=== PATIENT | female | born 1980 | race Caucasian/White ===

== ENCOUNTER → 2017-12-01 13:49 | Outpatient (CLI) | payer OTHER, MEDICAID, SELFPAY ==
--- NOTE | 2017-12-01 13:49 | DI.CT.S_ITS ---
PROCEDURE: CT SOFT TISSUE NECK W CON INDICATIONS: swollen lymph nodes TECHNIQUE: After the administration of intravenous contrast, 3.0 mm axial sections acquired from the sella to the aortic arch. Additional oblique axial 3.0 mm sections acquired through the pharynx. 3 mm thick coronal and sagittal reformats were generated. For radiation dose reduction, the following was used: automated exposure control. COMPARISON: None. FINDINGS: Image quality: Excellent. Lymph nodes: Mildly enlarged bilateral cervical lymph nodes are seen, with the largest seen in the left at level IIA measuring 12 x 20 mm in greatest axial dimension. Additional mildly enlarged lymph nodes are seen elsewhere within the neck, left more prominent than right. Neck spaces: The oropharynx, nasopharynx, and pharynx demonstrate no mucosal lesions. The vocal cords, false vocal cords, pyriform sinuses, epiglottis, vallecula, and tongue base all appear normal. Extramucosal spaces appear unremarkable. Glands: The parotid and submandibular glands appear normal. Thyroid gland demonstrates a hypoenhancing ovoid mass involving the isthmus and medial right thyroid that measures up to 2 cm. Miscellaneous: Visualized brain and orbits appear normal. Lung apices appear clear. Superficial soft tissues appear normal. Bones: No suspicious bony lesions. Visualized sinuses and mastoids appear unremarkable. IMPRESSION: Mildly enlarged cervical lymph nodes are seen, left greater than right. In the absence of a known or suspected primary cancer or lymphoma, these are felt most likely to be reactive in nature. If these do not improved clinically, then please consider a followup versus biopsy in 6 weeks. Incidental note is made of a right medial thyroid/isthmus hypoenhancing mass that measures up to 2 cm. A followup thyroid ultrasound is recommended for further evaluation. Dictated by: Daniel Turner M.D. on 12/01/2017 at 13:49 Approved by: Daniel Turner M.D. on 12/01/2017 at 13:53
== END ==
PROVIDERS: Family Provider Family Medicine; Visit Provider Family Medicine
DX: R59.0 Localized enlarged lymph nodes (principal); E07.9 Disorder of thyroid, unspecified
CPT/HCPCS: 70491

== ENCOUNTER → 2017-12-12 12:16 | Outpatient (CLI) | payer OTHER, MEDICAID, SELFPAY ==
[2017-12-12 14:07] LABS: Thyroid Stimulating Hormone 1.76 uIU/mL (0.47-4.68)
== END ==
PROVIDERS: Family Provider Family Medicine; PCP Family Medicine; Visit Provider Otolaryngology
DX: E04.1 Nontoxic single thyroid nodule (principal)
CPT/HCPCS: 36415; 84443

== ENCOUNTER → 2018-01-01 13:10 | Outpatient (CLI) | payer OTHER, MEDICAID, SELFPAY ==
--- NOTE | 2018-01-01 | DI.US.S_ITS ---
PROCEDURE: US THYROID INDICATIONS: THYROID NODULE TECHNIQUE: Real-time scanning was performed of the thyroid gland, with image documentation. COMPARISON: [facility], CT, CT SOFT TISSUE NECK W CON, 12/01/2017, 13:57. FINDINGS: Right: The right thyroid lobe measures 1.6 x 1.7 x 4.6 cm. At the right superior thyroid junction with the isthmus there is a solid appearing mass seen by next CT scanning 12/01/17, measuring up to 1.3 x 1.7 x 2.3 cm which is solid, hypoechoic, smoothly marginated. Left: The left thyroid lobe measures 1.3 x 1.4 x 4.9 cm. Note is made of multiple moderately prominent lymph nodes within the left neck, the largest of which measures 1.1 cm. There is a left inferior 1.1 x 0.7 x 0.7 cm solid hypoechoic smoothly marginated nodule involving the left thyroid lobe inferior third. Isthmus: The junction of the isthmus and the right thyroid lobe contains the dominant right thyroid mass discussed above. IMPRESSION: The dominant right thyroid mass appears amenable to safe ultrasound-guided cytology aspiration. Note is made of scattered moderately prominent lymph nodes at the left neck, as was noted during CT scanning 12/01/17. Dictated by: John Dominguez M.D. on 01/01/2018 at 13:55 Approved by: John Dominguez M.D. on 01/01/2018 at 13:59
== END ==
PROVIDERS: Family Provider Family Medicine; PCP Family Medicine; Visit Provider Otolaryngology
DX: E07.9 Disorder of thyroid, unspecified (principal); E04.1 Nontoxic single thyroid nodule; R59.0 Localized enlarged lymph nodes
CPT/HCPCS: 76536

== ENCOUNTER → 2018-01-18 10:14 | Outpatient (CLI) | payer OTHER, MEDICAID, SELFPAY ==
--- NOTE | 2018-01-18 | PATH_ITS ---
Note [facility] Accession Number: [id number] TESTS RESULT FLAG UNITS REF RANGE LAB Clinician Provided Cytology Information No. of containers..01 ThinPrep Vial No. of containers..12 Previously Prepared Cytology Slide 01 L NECK LYMPH NODE DIAGNOSIS: 02 L NECK LYMPH NODE NEGATIVE FOR CYTOLOGICALLY MALIGNANT CELLS. POLYMORPHOUS LYMPHOCYTES PRESENT, FAVOR A REACTIVE PROCESS. NO METASTATIC TUMOR IDENTIFIED. Pathologist ICD10: 02 R59.9 02 Taylor Solorio MD, Pathologist NPI- [id number] Uriel Rosales, Can Top Setter ([facility]) 01 30 CC, PINK, CLEAR RECEIVED: 6 ALCOHOL FIXED AND 6 QUICK STAINED SLIDES WITH 1 RNA VIAL FOR FURTHER TESTING. /VDU FLAG LEGEND: L-Low Normal,H-High Normal,LL-Alert Low,HH-Alert High <-Panic Low,>-Panic High,A-Abnormal,AA-Critical Abnormal Performed at: 01 =Z [facility] [address], [place] [address] Dionicio Danielle MD, 02 [facility] [address] [place] [id number] Evan Bennett MD, Performed at: 01 [facility] [address], [place], [place] [id number] MD Dionicio Danielle MD Phone: [phone]
--- NOTE | 2018-01-18 | DI.US.S_ITS ---
PROCEDURE: US BIOPSY LYMPH NODE INDICATIONS: ENLARGED LEFT NECK LYMPH NODE TECHNIQUE: The indications, alternatives, benefits, risks, and complications of the procedure were explained to the patient. Written informed consent was obtained and placed in the chart. Real-time sonography was utilized to choose the site for percutaneous lymph node sampling. The skin was prepped and draped in the usual sterile fashion. 1% lidocaine was infiltrated down to the site of interest. A coaxial needle was then advanced into the site of interest under direct sonographic visualization. A biopsy apparatus was then utilized, and core biopsies were obtained. The needle was then withdrawn; a bandage was applied to the biopsy site. COMPARISON: [facility], CT, CT SOFT TISSUE NECK W CON, 12/01/2017, 13:57. [facility], US, US THYROID, 01/01/2018, 13:23. FINDINGS: Biopsy site(s): Left superior cervical lymph node (palpable by patient) Needle: [employer] biopsy needle set. Number of passes: 7 Medications: 1% lidocaine for local anaesthesia. Complications: None. IMPRESSION: Successful ultrasound-guided left cervical lymph node biopsy, with pathology results pending. Dictated by: Chaz Macdonald M.D. on 01/18/2018 at 14:40 Approved by: Chaz Macdonald M.D. on 01/18/2018 at 14:43
--- NOTE | 2018-01-18 | DI.US.S_ITS ---
PROCEDURE: US FINE NEEDLE ASPIRATION INDICATIONS: NONTOXIC SINGLE THYROID NODULE TECHNIQUE: The indications, alternatives, benefits, risks, and complications of the procedure were explained to the patient. Written informed consent was obtained and placed in the chart. The thyroid region was examined sonographically and a site was chosen for ultrasound guided percutaneous sampling. The skin was prepared and draped in the usual fashion, and anesthetized with 1% lidocaine infiltrated from the skin down to the thyroid gland. Multiple passes were then performed, with contents emptied into an appropriate pathology specimen container. A bandage was applied to the area of access at completion of the study. COMPARISON: [facility], US, US THYROID, 01/01/2018, 13:23. FINDINGS: Location(s) of lesion(s) sampled: Right superior medial thyroid mass Bliss: 25 gauge hypodermic needles. Number of passes: 7 Medications: 1% lidocaine for local anaesthesia. Complications: None. IMPRESSION: Successful ultrasound-guided thyroid nodule fine needle aspiration, with cytology results pending. Please see chart below for management recommendations based on cytology results. [facility] ReportingRecommendationsNon-diagnostic* Repeat US-guided FNA, with on-site cytology evaluation if possible. * Repeated non-diagnostic nodules without high suspicion US features: close observation vs surgical consult. * Consider surgery if nodule has high suspicion US features, grows >20% in 2 dimensions on followup, or patient has clinical risk factors for malignancy. Benign* If nodule has high suspicion US features: repeat US and FNA within 12 months. * If nodule has low to intermediate suspicion US features: repeat US at 12-24 months. If nodule grows (20% increase in at least 2 dimensions, with minimal increase of 2 mm or >50% change in volume), or development of new suspicious US features, then repeat FNA or continue followup. * If nodule has very low suspicion US features: followup US at >24 months. Atypia of undetermined significance, follicular lesion of undetermined significanceRepeat FNA, molecular testing, followup US, or surgical consult.Follicular neoplasm, suspicious for follicular neoplasmSurgical consult; also consider molecular testing. Suspicious for malignancySurgical consult.MalignantSurgical consult. Dictated by: Chaz Macdonald M.D. on 01/18/2018 at 14:38 Approved by: Chaz Macdonald M.D. on 01/18/2018 at 14:39
--- NOTE | 2018-01-18 | PATH_ITS ---
Note [facility] Accession Number: [id number] TESTS RESULT FLAG UNITS REF RANGE LAB Clinician Provided Cytology Information No. of containers..01 ThinPrep Vial No. of containers..10 Previously Prepared Cytology Slide 01 RIGHT THYROID ISTHMU DIAGNOSIS: 02 RIGHT THYROID ISTHMUS BETH[place]DA CATEGORY III. ATYPIA OF UNDETERMINED SIGNIFICANCE. COMMENT Scattered cohesive groups of follicular cells, predominantly benign appearing, are present with focal architectural and cytologic atypia. There is relatively abundant background of blood and obscuring clotting artifact. A portion of the specimen will be sent for molecular testing to assist in predicting the risk of maligancy in this atypical specimen. A repeat aspirate after an appropriate interval of observation might be helpful, if clinically indicated. As part of routine quality assurance supervisor final, Dr. Solorio also reviewed selected slides and agrees with the above interpretation. Pathologist ICD10: 02 R89.6 02 Jessica Cope MD, Pathologist NPI- [id number] Silvestre Dupree, Primary Care Coordinator ([facility]) 01 30 CC, RED, CLEAR RECEIVED: 5 ALCOHOL FIXED AND 5 QUICK STAINED SLIDES WITH 1 RNA VIAL FOR FURTHER TESTING. /VDU FLAG LEGEND: L-Low Normal,H-High Normal,LL-Alert Low,HH-Alert High <-Panic Low,>-Panic High,A-Abnormal,AA-Critical Abnormal Performed at: 01 =Z [facility] [address] [place] [address] [address], [place] [address] Dionicio Danielle MD, 02 [facility] [address] [place] [address] Evan Bennett MD, Performed at: 01 [facility] [address] [place] [address], [place], [place] [id number] MD Dionicio Danielle MD Phone: [phone]
== END ==
PROVIDERS: Family Provider Family Medicine; PCP Family Medicine; Visit Provider Otolaryngology
DX: E04.1 Nontoxic single thyroid nodule (principal); R59.0 Localized enlarged lymph nodes
CPT/HCPCS: 10022; 38505; 76942

== ENCOUNTER → 2020-10-19 15:07 | Outpatient (ROUT) | payer OTHER, MEDICAID, SELFPAY ==
[2020-10-19 15:54] LABS: COVID19 -Nasal RAPID Negative (Negative)
== END ==
PROVIDERS: Family Provider Family Medicine; PCP Family Medicine; Visit Provider Physician Assistant
DX: Z20.822 Contact with and (suspected) exposure to COVID-19 (principal)
CPT/HCPCS: 87635

== ENCOUNTER 2020-11-22 10:07 | Emergency (ER) | payer OTHER, MEDICAID, SELFPAY ==
[2020-11-22 10:19] VITALS: BP 131/66; PULSE 75; RESP 20; TEMP 35.8; O2SAT 99
[2020-11-22] MEDS: KETOROLAC 30 MG/ML VIAL IM (11:48)
--- NOTE | 2020-11-22 11:50 | ED.BACK ---
HPI - Back Pain/Injury General Chief Complaint: Back Pain/Injury Stated Complaint: Fell and back made a crack sound Time Seen by Provider: 11/22/20 11:42 Source: patient Limitations: no limitations History of Present Illness HPI Narrative: Patient is a 40-year-old female who presents with back pain after falling backwards. [place], pigs were coming out at her took a few steps back fell backwards now having some back pain and right lumbar pain. She denies any numbness tingling or weakness of her right leg. Some movements hurt she feels like she heard a crack. No head injury or loss of consciousness. She is otherwise healthy. Related Data Previous Rx's Medication Instructions Recorded cyclobenzaprine 5 mg tablet 5 mg PO TID PRN #10 tab 11/22/20 hydrocodone 5 mg-acetaminophen 325 1 tab PO Q6H PRN #20 tab 11/22/20 mg tablet Allergies Allergy/AdvReac Type Severity Reaction Status Date / Time No Known Allergies Allergy Unknown Verified 10/19/20 14:56 [NO KNOWN ALLERGIES] Review of Systems Review of Systems Narrative: GENERAL: Denies chills, fatigue, malaise, fever, sweats, travel HEENT: Denies sinus pain, ear pain, sore throat, difficulty swallowing, neck pain RESPIRATORY: Denies dyspnea, cough, wheezing, hemoptysis, sputum. CARDIOVASCULAR: Denies chest pain, palpitations, orthopnea, edema GASTROINTESTINAL: Denies nausea, vomiting, abdominal pain, diarrhea, constipation, melena. : Denies dysuria, frequency, incontinence, hematuria, urinary retention, flank pain. MUSCULOSKELETAL: Back pain SKIN: No rash, no erythema, no pruritus NEUROLOGIC: Denies weakness, dizziness, headache, numbness, change in speech, confusion PSYCHIATRIC: No concerning psychosocial issues. 12 point review of systems is negative except for those stated above and HPI Patient History Medical History Dermoid cyst of right ovary (2010) 4 para 4 HSV-1 (herpes simplex virus 1) infection Normal Papanicolaou smear Ovarian cyst (2015) RLS (restless legs syndrome) Scoliosis (1994) Surgical History (Updated 11/01/17 @ 16:13 by Silvia Ibarra) Anesthesia History of excision of dermoid cyst (2010) History of left salpingo-oophorectomy (12/25/15) Status post excision of lipoma (1999) Status post laparoscopy (12/25/15) Family History (Updated 11/01/17 @ 16:16 by Silvia Ibarra) Brother Age: 39 Non-Hodgkin lymphoma Cancer Father Diabetes mellitus Heart disease Hypertension High cholesterol Sleep apnea, unspecified type Grandfather Stroke Grandmother Heart disease Stroke Mother Age: 76 Diabetes mellitus High cholesterol Hypertension Grandfather Heavy smoker Sister Age: 49 Fibromyalgia Brother No problems noted. Grandmother COPD (chronic obstructive pulmonary disease) Social History Smoking Status: Never smoker Smoking Status: Never smoker Substance Use Type: does not use Exam Initial Vital Signs Initial Vital Signs: Vital Signs Temperature 96.4 F L 11/22/20 10:19 Pulse Rate 75 11/22/20 10:19 Respiratory Rate 20 11/22/20 10:19 Blood Pressure 131/66 11/22/20 10:19 Pulse Oximetry 99 11/22/20 10:19 GENERAL: Alert 40-year-old female CARDIOVASCULAR: peripheral pulses in tact, cap refill <2 sec RESPIRATORY: No respiratory distress, speaks in full sentences without difficulty BACK: Mild midline lumbar pain L4-L5 area no step-offs or contusions. Pain right lumbar area and paraspinal muscles. Sensation in lower extremities intact ago to move right leg a out severe pain EXTREMITIES: Normal range of motion, no clubbing or edema. Neurovascularly intact NEUROLOGICAL: Cranial nerves II through XII grossly intact. Normal gait and speech. SKIN: Warm, dry, no petechiae, no rashes or lesions. Course Orders Ordered: ED Orders 11/22/20 11:51 XR lumbar spine 2-3V Stat 11/22/20 12:30 CT lumbar spine wo con Stat Discontinued Medications Hydromorphone HCl (Hydromorphone 2 Mg Inj) 1 mg SUBCUT Q4H PRN PRN Reason: Pain, Severe (7-10) Last Admin: 11/22/20 13:09 Dose: 1 mg Documented by: JACQUELINE Ketorolac Tromethamine (Ketorolac 30 Mg/Ml Vial) 30 mg IM NOW ONE Stop: 11/22/20 11:43 Last Admin: 11/22/20 11:48 Dose: 30 mg Documented by: ALAN Vital Signs Vital signs: Vital Signs - 8 hr 11/22/20 15:00 Temperature 97.3 F L Pulse Rate 69 Respiratory Rate 18 Blood Pressure 140/71 Pulse Oximetry 97 MDM - Back Pain/Injury Imaging Data Extremity x-ray #1: Radiologist's Impression: PROCEDURE:? XR LUMBAR SPINE 2-3V ? INDICATIONS:? fall ? TECHNIQUE:? 3 views of the lumbar spine were acquired.? ? COMPARISON:? [facility], CT, ABDOMEN/PELVIS WITH CONTRAST, 10/13/2016, 21:25. ? FINDINGS:? ? Bones:? There is a compression deformity seen involving the anterior aspect of L2 vertebral body, with 20% loss height anteriorly.? No posterior displacement of fracture fragments can be seen.? This fracture is new compared to 2017. ? No additional fractures are detected. 5 nonrib-bearing, lumbar type vertebral bodies are seen.? No suspicious lytic or blastic lesions are seen.? The disc heights are well preserved. ? Soft tissues:? Overlying bowel gas pattern is normal.? No suspicious soft tissue calcifications.? ? ? IMPRESSION:? Acute appearing L2 fracture, with 20% loss of height anteriorly. ? If it would be helpful for clinical management decision making, please consider a dedicated lumbar spine CT or MRI for further evaluation (assuming that there is no contraindication).? ? ? Dictated by: Daniel Turner M.D. on 11/22/2020 at 11:21 ? ? CT Lumbar: Radiologist's Impression: PROCEDURE:? CT LUMBAR SPINE WO CON ? INDICATIONS:? fall L2 fracture ? TECHNIQUE:? Noncontrast 3 mm thick sections acquired from the T12 level to the sacrum.? Sagittal and coronal reformats were constructed.? For radiation dose reduction, the following was used:? automated exposure control.? ? COMPARISON:? [facility], CR, XR LUMBAR SPINE 2-3V, 11/22/2020, 11:47.? [facility], CT, ABDOMEN/PELVIS WITH CONTRAST, 10/13/2016, 21:25. ? FINDINGS:? Image quality:? Excellent.? ? Bones:? There is an acute L2 fracture seen, with 40-50% loss centrally.? There is involvement both superior endplate and the inferior endplate.? No posterior displacement of fracture fragments can be seen. No additional fractures are detected. ? No additional fractures are detected. There is normal bony alignment.? No suspicious lytic or blastic bony lesions.? No pars defects.? ? No significant disc pathology, central narrowing, or neural foraminal narrowing can be seen throughout. ? Soft tissues:? No retroperitoneal masses or hematomas.? Visualized aorta is normal in caliber.? ? ? IMPRESSION:? L2 fracture, which involves both the superior endplate and the inferior endplate.? There is 40-50% loss of height centrally.? No posterior displacement of fracture fragments can be seen. ? ? Dictated by: Daniel Turner M.D. on 11/22/2020 at 11:58 ?? MDM Narrative Medical decision making narrative: Patient is some have L2 fracture on x-ray. She is having as of her spinal muscle tenderness and palpable spasm as well. CT does confirm compression like fracture of L2 which is stable. She is given pain medications as well. At this time she has no new neurologic deficits I discussed with her warning signs when to return to ED. I encouraged her to follow-up with orthopedics. Discharge Plan Departure Patient Disposition: Home Clinical Impression: Closed L2 vertebral fracture Instructions: DI for Vertebral Fracture Activity Restrictions/Additional Instructions: *You have been diagnosed with L2 fracture *What to do: At this time he did break L2. However it should heal without any intervention. Nonetheless should follow-up with a spinal surgeon. No heavy lifting. Light activity only *Continue to take medications as directed [place] 1-2 tablets every 6 hours if needed for pain Cyclobenzaprine 5-10 mg every 8 hours *Follow up with your primary care provider in 2-[address] López on Monday for close follow-up *Return to ER if you should have numbness or tingling in extremities loss of urine or bowel, fever, increasing pain, or any new, worsening or concerning symptoms CONTROLLED SUBSTANCE DISCHARGE (Narcotoic/benzodiazepine/Flexeril/Phenergan) 1. You have been prescribed narcotic medications, it does have acetaminophen/Tylenol/paracetamol in it, DO NOT TAKE MORE THAN 4,00mg in 24 hours of Tylenol. TRAMADOL DOES NOT CONTAIN TYLENOL 2. Please understand that we cannot provide further refills of narcotics, benzodiazepines or controlled substances through the ED and her pain management will need to be through your provider. 3. While on these medications you cannot drive or operate heavy machinery. 4. You cannot sign legal documents or perform any duties such as this. 5. As long as you're taking opiate pain medications he should also be taking a stool softener such as Colace, Dulcolax, MiraLAX or prune juice, to help avoid constipation. Prescriptions: New hydrocodone-acetaminophen 5-325 mg tablet 1 tab PO Q6H PRN (Reason: pain) Qty: 20 RF: 0 cyclobenzaprine 5 mg tablet 5 mg PO TID PRN (Reason: muscle spasm) Qty: 10 RF: 0 Referrals: Linda Oropeza DO [Primary Care Provider] - Cecy Colon MD [Physician] -
--- NOTE | 2020-11-22 11:51 | DI.RAD.S_ITS ---
PROCEDURE: XR LUMBAR SPINE 2-3V INDICATIONS: fall TECHNIQUE: 3 views of the lumbar spine were acquired. COMPARISON: [facility], CT, ABDOMEN/PELVIS WITH CONTRAST, 10/13/2016, 21:25. FINDINGS: Bones: There is a compression deformity seen involving the anterior aspect of L2 vertebral body, with 20% loss height anteriorly. No posterior displacement of fracture fragments can be seen. This fracture is new compared to 2017. No additional fractures are detected. 5 nonrib-bearing, lumbar type vertebral bodies are seen. No suspicious lytic or blastic lesions are seen. The disc heights are well preserved. Soft tissues: Overlying bowel gas pattern is normal. No suspicious soft tissue calcifications. IMPRESSION: Acute appearing L2 fracture, with 20% loss of height anteriorly. If it would be helpful for clinical management decision making, please consider a dedicated lumbar spine CT or MRI for further evaluation (assuming that there is no contraindication). Dictated by: Daniel Turner M.D. on 11/22/2020 at 11:21 Approved by: Daniel Turner M.D. on 11/22/2020 at 11:23
--- NOTE | 2020-11-22 12:30 | DI.CT.S_ITS ---
PROCEDURE: CT LUMBAR SPINE WO CON INDICATIONS: fall L2 fracture TECHNIQUE: Noncontrast 3 mm thick sections acquired from the T12 level to the sacrum. Sagittal and coronal reformats were constructed. For radiation dose reduction, the following was used: automated exposure control. COMPARISON: [facility], CR, XR LUMBAR SPINE 2-3V, 11/22/2020, 11:47. [facility], CT, ABDOMEN/PELVIS WITH CONTRAST, 10/13/2016, 21:25. FINDINGS: Image quality: Excellent. Bones: There is an acute L2 fracture seen, with 40-50% loss centrally. There is involvement both superior endplate and the inferior endplate. No posterior displacement of fracture fragments can be seen. No additional fractures are detected. No additional fractures are detected. There is normal bony alignment. No suspicious lytic or blastic bony lesions. No pars defects. No significant disc pathology, central narrowing, or neural foraminal narrowing can be seen throughout. Soft tissues: No retroperitoneal masses or hematomas. Visualized aorta is normal in caliber. IMPRESSION: L2 fracture, which involves both the superior endplate and the inferior endplate. There is 40-50% loss of height centrally. No posterior displacement of fracture fragments can be seen. Dictated by: Daniel Turner M.D. on 11/22/2020 at 11:58 Approved by: Daniel Turner M.D. on 11/22/2020 at 12:00
[2020-11-22] MEDS: HYDROMORPHONE 2 MG INJ 1 MG SUBCUT (13:09)
[2020-11-22 15:00] VITALS: BP 140/71; PULSE 69; RESP 18; TEMP 36.3; O2SAT 97
== END 2020-11-22 15:06 | disposition home or self-care (01) ==
PROVIDERS: Emergency Provider Emergency Medicine; Family Provider Family Medicine; PCP Family Medicine
DX: S32.029A Unspecified fracture of second lumbar vertebra, initial encounter for closed fracture (principal); W19.XXXA Unspecified fall, initial encounter
CPT/HCPCS: 72100; 72131; 96372; 99283; 99284; J1170; J1885